=== PATIENT | male | born 1980 | race American Indian/Alaskan Native ===

== ENCOUNTER 2017-03-17 20:00 | Emergency (ER) | payer OTHER ==
[2017-03-17 20:07] VITALS: BP 126/88
[2017-03-17] MEDS ORDERED: TYLENOL PO ONE (20:20)
[2017-03-17] MEDS ORDERED: TYLENOL ONE (20:21)
--- NOTE | 2017-03-17 21:35 | XRay Report ---
FINAL REPORT PROCEDURE: XR HAND 3+V RT TECHNIQUE: RIGHT hand radiographs, AP, lateral, and oblique views. CPT 60783-QE HISTORY: Impact Rt 2nd digit, lac. Pain. COMPARISON: No prior studies are available for comparison. FINDINGS: No evidence of acute fracture or dislocation. There is artifact from a bandage overlying the distal end of the 3rd finger. No radiopaque foreign bodies are identified. 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 Postsurgical changes partially visualized distal ulna. There is a sideplate and fixation screws partially visualized. IMPRESSION: No evidence of acute fracture or foreign body. Postsurgical changes distal ulna. 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
--- NOTE | 2017-03-18 00:59 | Emergency Department Report ---
Upper Extremity - HPI Chief Complaint: Extremity Injury, Upper Stated Complaint: R HAND INJURY Time Seen by Provider: 03/18/17 00:42 Upper Extremity: Right Middle Finger Occurred When: Today Mechanism: Hit with Object Severity: moderate Symptoms: Yes Swelling, Yes Bruising/Ecchymosis, Yes Laceration or Abrasion, No Pain with Movement, No Deformity, No Limited Range of Movement, No Numbness, No Weakness Other History: 36-year-old male past medical history right wrist surgery presents with complaint of injury to right middle finger. Patient states while moving furniture a bureau briefly fell onto the tip of his finger. Visible small vertical laceration to distal middle finger pad. Patient unaware of tetanus status. Denies any other injuries. Visible small amount of bleeding. ED Review of Systems ROS: Stated complaint: R HAND INJURY Other details as noted in HPI Constitutional: denies: chills, fever Eyes: denies: eye pain, eye discharge, vision change ENT: denies: ear pain, throat pain Respiratory: denies: cough, shortness of breath, wheezing Cardiovascular: denies: chest pain, palpitations Endocrine: no symptoms reported Gastrointestinal: denies: abdominal pain, nausea, diarrhea Genitourinary: denies: urgency, dysuria Musculoskeletal: denies: back pain, joint swelling, arthralgia Skin: denies: rash, lesions Neurological: denies: headache, weakness, paresthesias Psychiatric: denies: anxiety, depression Hematological/Lymphatic: denies: easy bleeding, easy bruising ED Past Medical Hx - Past Medical History Previous Medical History?: No - Surgical History Past Surgical History?: Yes Additional Surgical History: lip surgery, right wrist surgery - Social History Smoking Status: Current Every Day Smoker Substance Use Type: Alcohol - Medications Home Medications: Home Medications Medication Instructions Recorded Confirmed Last Taken Type Acetaminophen/Codeine [Tylenol 1 tab PO Q6H PRN #3 tab 03/18/17 Unknown Rx /Codeine # 3 tab] Bacitracin Zinc Oint [Antibiotic 1 applicatio TP BID #1 tube 03/18/17 Unknown Rx Oint] Cephalexin [Keflex] 500 mg PO BID #14 capsule 03/18/17 Unknown Rx Ibuprofen [Motrin] 800 mg PO Q8HR PRN #30 tablet 03/18/17 Unknown Rx Upper Extremity Exam - Exam General: Vital signs noted. No distress. Alert and acting appropriately. Head and Torso: No HEENT Abnormality, No Neck Tenderness, No Chest/Lungs Abnormality, No Abdominal Tenderness, No Back Tenderness Shoulder Exam: Yes Normal Range of Motion in Shoulder, No Shoulder Tenderness, No Clavicle Tenderness, No Shoulder Deformity, No AC Joint Tenderness Arm Exam: No Arm/Humerus Tenderness, No Arm Deformity Elbow: No Elbow Tenderness, No Normal Range of Motion in Elbow, No Elbow Deformity Forearm: No Forearm Tenderness, No Forearm Deformity, No Pain with Pronation, No Pain with Supination Wrist: Yes Normal ROM in Wrist (wrist flexion and extension intact), No Wrist Tenderness, No Wrist Deformity, No Snuffbox Tenderness, No Pain with Axial Thumb Compression Hand: Yes Normal ROM in Digit(s), No Hand Tenderness, No Hand Deformity, No Digit Tenderness, No Digit(s) Deformity, No Tendon Dysfunction CMS Exam: Yes Broken Skin, Yes Normal Distal Pulses (distal radial and ulnar pulses intact), Yes Normal Capillary Refill (capillary refill less than 1 second fingers), Yes Normal Distal Sensation (distal fingertip sensation intact) Hand L/R Front: 1 - Laceration here ED Course Vital Signs 03/17/17 20:04 Temperature 98.1 F Pulse Rate 94 H Blood Pressure 126/88 O2 Sat by Pulse 97 Oximetry - Laceration /Wound Repair Right Distal Finger Wound Location: upper extremity (right distal middle fingertip pad) Wound Length (cm): 2 Wound's Depth, Shape: superficial Irrigated w/ Saline (ccs): 1,000 Betadine Prep?: Yes Anesthesia: 1% Lidocaine Volume Anesthetic (ccs): 3 Wound Repaired With: sutures Suture Size/Type: 5:0 Number of Sutures: 3 Layer Closure?: No Sterile Dressing Applied?: Yes (triple antibiotic ointment with gauze) ED Medical Decision Making - Medical Decision Making A/P: Right distal middle fingertip Laceration 1-sutures to be removed in 7 days 2-tetanus updated, keflex 500mg bid 7 days 3-Motrin when necessary, triple antibiotic ointment 4- pt advised to return to the ED for any fevers chills pus drainage erythema at site of laceration Critical care attestation.: If time is entered above; I have spent that time in minutes in the direct care of this critically ill patient, excluding procedure time. ED Disposition Clinical Impression: Finger laceration Qualifiers: Encounter type: initial encounter Finger: middle finger Damage to nail status: without damage Foreign body presence: without foreign body Laterality: right Qualified Code(s): S61.212A - Laceration without foreign body of right middle finger without damage to nail, initial encounter Disposition: TO HOME OR SELFCARE Is pt being admited?: No Does the pt Need Aspirin: No Condition: Stable Instructions: Suture Care (ED), Laceration (ED), Finger Laceration (ED) Additional Instructions: return to ED in 7 days for suture removal Prescriptions: Acetaminophen/Codeine [Tylenol /Codeine # 3 tab] 1 tab PO Q6H PRN #3 tab PRN Reason: Pain Bacitracin Zinc Oint [Antibiotic Oint] 1 applicatio TP BID #1 tube Cephalexin [Keflex] 500 mg PO BID #14 capsule Ibuprofen [Motrin] 800 mg PO Q8HR PRN #30 tablet PRN Reason: Pain Referrals: [facility] [Outside] - 3-5 Days [facility] [Outside] - 3-5 Days Forms: Accompanied Note, Work/School Release Form(ED) Time of Disposition: 01:04
[2017-03-18] MEDS ORDERED: BOOSTRIX IM ONE (01:00)
[2017-03-18] MEDS ORDERED: XYLOCAINE 2% INFILTRATI ONE (01:00)
[2017-03-18] MEDS ORDERED: TRIPLE ANTIBIOTIC TP ONE (01:00)
[2017-03-18] MEDS ORDERED: MOTRIN PO ONE (01:00)
== END 2017-03-18 01:45 | disposition home or self-care (01) ==
LOC: ED 20:00
DX: S61.212A Laceration without foreign body of right middle finger without damage to nail, initial encounter (principal); F17.200 Nicotine dependence, unspecified, uncomplicated; W20.8XXA Other cause of strike by thrown, projected or falling object, initial encounter; Y93.89 Activity, other specified; Y92.89 Other specified places as the place of occurrence of the external cause; Y99.8 Other external cause status
CPT/HCPCS: 90471; 90715; A6250

== ENCOUNTER 2018-11-06 18:15 | Emergency (ER) | payer OTHER ==
--- NOTE | 2018-11-06 18:55 | Event Note ---
ED Screening Note Date of service: 11/06/18 Time: 18:51 ED Screening Note: Patient reports sensation of a wave in left ear x 3 days. Denies pain or changes to hearing. This initial assessment/diagnostic orders/clinical plan/treatment(s) is/are subject to change based on patients health status, clinical progression and re- assessment by fellow clinical providers in the ED. Further treatment and workup at subsequent clinical providers discretion. Patient/guardian urged not to elope from the ED as their condition may be serious if not clinically assessed and managed. Initial orders include: ACC for further evaluation.
--- NOTE | 2018-11-06 21:18 | Emergency Department Report ---
ED General Adult HPI - General Chief complaint: Earache Stated complaint: OBJECT STUCK IN L EAR Time Seen by Provider: 11/06/18 18:51 Source: patient Mode of arrival: Ambulatory Limitations: No Limitations - History of Present Illness Initial comments: Patient is a 38-year-old -[place] male with no past medical history who presents to the ED with complaint of left ear pain for the last 5 days and suspects that the fluid may have entered into his left ear. The patient denies dizziness, hearing loss, chest pain, shortness of breath, sore throat, cough, nasal and sinus congestion, abdominal pain, chest pain or shortness of breath. MD Complaint: left ear pain -: Sudden, days(s) (5) Location: face (left ear ) Radiation: non-radiation Severity scale (0 -10): 3 Quality: aching, dull, constant Consistency: constant Improves with: none Worsens with: none Associated Symptoms: denies other symptoms. denies: confusion, chest pain, cough, diaphoresis, fever/chills, headaches, loss of appetite, malaise, nausea/vomiting, rash, seizure, shortness of breath, syncope, weakness Treatments Prior to Arrival: none - Related Data Previous Rx's Medication Instructions Recorded Last Taken Type Acetaminophen/Codeine [Tylenol 1 tab PO Q6H PRN #3 tab 03/18/17 Unknown Rx /Codeine # 3 tab] Bacitracin Zinc Oint [Antibiotic 1 applicatio TP BID #1 tube 03/18/17 Unknown Rx Oint] Cephalexin [Keflex] 500 mg PO BID #14 capsule 03/18/17 Unknown Rx Ibuprofen [Motrin] 800 mg PO Q8HR PRN #30 tablet 03/18/17 Unknown Rx Amoxicillin/K Clav Tab [Augmentin 1 tab PO Q12HR #20 tab 11/06/18 Unknown Rx 875 mg] Ibuprofen [Motrin] 800 mg PO Q8HR PRN #15 tablet 11/06/18 Unknown Rx Ofloxacin 0.3% [Floxin 0.3% Otic] 2 drops OT Q4H #5 ml 11/06/18 Unknown Rx Allergies Allergy/AdvReac Type Severity Reaction Status Date / Time No Known Allergies Allergy Verified 11/06/18 18:17 ED Review of Systems ROS: Stated complaint: OBJECT STUCK IN L EAR Other details as noted in HPI Constitutional: denies: chills, fever Eyes: denies: eye pain, eye discharge, vision change ENT: ear pain (LEFT), other (Left ear pressure). denies: throat pain Respiratory: denies: cough, shortness of breath, wheezing Cardiovascular: denies: chest pain, palpitations Endocrine: no symptoms reported Gastrointestinal: denies: abdominal pain, nausea, diarrhea Genitourinary: denies: urgency, dysuria Musculoskeletal: denies: back pain, joint swelling, arthralgia Skin: denies: rash, lesions Neurological: denies: headache, weakness, paresthesias Psychiatric: denies: anxiety, depression Hematological/Lymphatic: denies: easy bleeding, easy bruising ED Past Medical Hx - Past Medical History Previous Medical History?: No - Surgical History Additional Surgical History: lip surgery, right wrist surgery - Social History Smoking Status: Current Every Day Smoker Substance Use Type: Alcohol - Medications Home Medications: Home Medications Medication Instructions Recorded Confirmed Last Taken Type Acetaminophen/Codeine [Tylenol 1 tab PO Q6H PRN #3 tab 03/18/17 Unknown Rx /Codeine # 3 tab] Bacitracin Zinc Oint [Antibiotic 1 applicatio TP BID #1 tube 03/18/17 Unknown Rx Oint] Cephalexin [Keflex] 500 mg PO BID #14 capsule 03/18/17 Unknown Rx Ibuprofen [Motrin] 800 mg PO Q8HR PRN #30 tablet 03/18/17 Unknown Rx Amoxicillin/K Clav Tab [Augmentin 1 tab PO Q12HR #20 tab 11/06/18 Unknown Rx 875 mg] Ibuprofen [Motrin] 800 mg PO Q8HR PRN #15 tablet 11/06/18 Unknown Rx Ofloxacin 0.3% [Floxin 0.3% Otic] 2 drops OT Q4H #5 ml 11/06/18 Unknown Rx ED Physical Exam - General Limitations: No Limitations General appearance: alert, in no apparent distress - Head Head exam: Present: atraumatic, normocephalic, normal inspection - Eye Eye exam: Present: normal appearance, PERRL, EOMI - ENT ENT exam: Present: normal exam, mucous membranes moist, normal external ear exam, other (erythematous buldging left ear with effusion) - Neck Neck exam: Present: normal inspection, full ROM. Absent: tenderness, lymphadenopathy - Respiratory Respiratory exam: Present: normal lung sounds bilaterally. Absent: respiratory distress, wheezes, rales, rhonchi, chest wall tenderness - Cardiovascular Cardiovascular Exam: Present: regular rate, normal rhythm, normal heart sounds. Absent: systolic murmur, diastolic murmur, rubs, gallop - GI/Abdominal GI/Abdominal exam: Present: soft, normal bowel sounds. Absent: distended, tenderness, guarding, rebound, hyperactive bowel sounds, hypoactive bowel sounds, organomegaly - Rectal Rectal exam: Present: deferred - Extremities Exam Extremities exam: Present: normal inspection, full ROM, normal capillary refill - Back Exam Back exam: Present: normal inspection, full ROM. Absent: CVA tenderness (L), muscle spasm, paraspinal tenderness - Neurological Exam Neurological exam: Present: alert, oriented X3, CN II-XII intact, normal gait, reflexes normal - Psychiatric Psychiatric exam: Present: normal affect, normal mood - Skin Skin exam: Present: warm, dry, intact, normal color. Absent: rash ED Course Vital Signs 11/06/18 18:51 Temperature 97.7 F Pulse Rate 81 Respiratory 18 Rate Blood Pressure 129/86 [Right] O2 Sat by Pulse 98 Oximetry - Reevaluation(s) Reevaluation #1: 11/06/18 21:19 Patient is alert and oriented 3 and is not in distress with normal vital signs. Patient is discharged home on medications and advised to follow-up with his primary care physician in 5-7 days for reevaluation. Patient advised to return to the ED immediately if symptoms get worse. ED Medical Decision Making - Medical Decision Making Patient is alert and oriented 3 and is not in distress with normal vital signs. Patient is discharged home on medications and advised to follow-up with his primary care physician in 5-7 days for reevaluation. Patient advised to return to the ED immediately if symptoms get worse. - Differential Diagnosis Acute otitis media with effusion; Acute upper respiratory infection Critical care attestation.: If time is entered above; I have spent that time in minutes in the direct care of this critically ill patient, excluding procedure time. ED Disposition Clinical Impression: Acute otitis media with effusion of left ear Disposition: TO HOME OR SELFCARE Is pt being admited?: No Does the pt Need Aspirin: No Condition: Stable Instructions: Otitis Media (ED) Additional Instructions: Take medications with food, drink plenty of fluids and follow-up with your primary care physician in 7-10 days for reevaluation. Return to the ED immediately if symptoms get worse. Prescriptions: Amoxicillin/K Clav Tab [Augmentin 875 mg] 1 tab PO Q12HR #20 tab Ofloxacin 0.3% [Floxin 0.3% Otic] 2 drops OT Q4H #5 ml Ibuprofen [Motrin] 800 mg PO Q8HR PRN #15 tablet PRN Reason: Pain , Severe (7-10) Referrals: [facility] [Outside] - 3-5 Days Time of Disposition: 21:12 Print Language: ALBANIAN
[2018-11-06 22:49] VITALS: BP 139/88
== END 2018-11-06 22:49 | disposition home or self-care (01) ==
LOC: ED 18:15
DX: H65.192 Other acute nonsuppurative otitis media, left ear (principal); F17.200 Nicotine dependence, unspecified, uncomplicated; Z98.890 Other specified postprocedural states